=== PATIENT | male | born 1965 | race Caucasian/White ===

== ENCOUNTER 2017-06-25 18:28 | Emergency (ER) | payer OTHER ==
[~2017-06-25] VITALS: Ht 175.3 cm; Wt 96.6 kg
--- NOTE | 2017-06-25 18:41 | NUR ---
PATIENT PRESENTS TO ER C/O REDNESS/POSSIBLE ABSCESS TO RLQ x 3 DAYS. PATIENT IS A/OX 4, BREATHING EVEN AND UNLABORED ON ROOM AIR. NO SOB. NO DISTRESS. VITALS STABLE. SAFETY AND COMFORT MEASURES IN PLACE. AWAITING MD ORDERS.
[2017-06-25 18:51] VITALS: BP 138/84
--- NOTE | 2017-06-25 18:52 | NUR ---
Patient discharged to home in stable condition. Prescription given to patient. Written and verbal after care instructions given. Patient verbalizes understanding of instruction.
[2017-06-25] MEDS ORDERED: SULFAMETH/TRIMETH 800/160 MG 1 UDTAB TABLET PO ONE (19:00)
[2017-06-25] MEDS ORDERED: CEPHALEXIN MONOHYDRATE 500 MG CAPSULE PO ONE (19:00)
== END 2017-06-25 18:52 | disposition home or self-care (01) ==
LOC: ER 18:29
DX: L03.311 Cellulitis of abdominal wall (principal); F32.9 Major depressive disorder, single episode, unspecified; F17.200 Nicotine dependence, unspecified, uncomplicated
CPT/HCPCS: 99283; A4606; Z7610

== ENCOUNTER 2017-09-12 14:50 | Emergency (ER) | payer OTHER ==
[~2017-09-12] VITALS: Ht 175.3 cm; Wt 98.9 kg
[2017-09-12 14:50] VITALS: BP 145/70
[2017-09-12] MEDS ORDERED: LIDOCAINE 1% INJ 50 ML MDV IJ ONE ×2 (15:30→15:44)
--- NOTE | 2017-09-12 16:02 | NUR ---
LAC REPAIR DONE. 4 SUTERES NOTED. WOUND CARE PROVIDED.
== END 2017-09-12 16:10 | disposition home or self-care (01) ==
LOC: ER 14:52
DX: S61.211A Laceration without foreign body of left index finger without damage to nail, initial encounter (principal); F32.9 Major depressive disorder, single episode, unspecified; F17.200 Nicotine dependence, unspecified, uncomplicated; W45.8XXA Other foreign body or object entering through skin, initial encounter; Y93.89 Activity, other specified; Y92.89 Other specified places as the place of occurrence of the external cause; Y99.8 Other external cause status
CPT/HCPCS: 12001; 99283; A4606; A6402; J3490; Z7610

== ENCOUNTER 2017-09-24 00:33 | Emergency (ER) | payer OTHER ==
[~2017-09-24] VITALS: Ht 175.3 cm; Wt 97.5 kg
[2017-09-24 00:46] VITALS: BP 127/68
== END 2017-09-24 01:03 | disposition home or self-care (01) ==
LOC: ER 00:38
DX: S61.211D Laceration without foreign body of left index finger without damage to nail, subsequent encounter (principal); F32.9 Major depressive disorder, single episode, unspecified; F17.200 Nicotine dependence, unspecified, uncomplicated; W45.8XXD Other foreign body or object entering through skin, subsequent encounter
CPT/HCPCS: 99281; A4606; Z7610; Z7502

== ENCOUNTER 2018-06-14 14:56 | Emergency (ER) | payer OTHER ==
[~2018-06-14] VITALS: Ht 175.3 cm; Wt 83.5 kg
--- NOTE | 2018-06-14 15:17 | NUR ---
PT AMBULATORY TO ER BED 11 C/O L KNEE PAIN, STATES TWISTED IT WHILE WALKING TODAY. DENIES ANY OTHER COMPLAIN AT THIS TIME. VSS. AWAITING MD SIMPSON.
--- NOTE | 2018-06-14 15:48 | NUR ---
MALISSA CONWAY AT BEDSIDE FOR EVAL.
[2018-06-14] MEDS ORDERED: KETOROLAC TROMETHAMINE INJ 60 MG/2 ML VIAL IM ONE ×2 (16:28→16:30)
--- NOTE | 2018-06-14 17:11 | NUR ---
KNEE IMMOBILIZER APPLIED. Patient discharged to home in stable condition. Written and verbal after care instructions given. Patient verbalizes understanding of instruction.
[2018-06-14 17:12] VITALS: BP 128/77
== END 2018-06-14 17:13 | disposition home or self-care (01) ==
LOC: ER 15:01
DX: M17.12 Unilateral primary osteoarthritis, left knee (principal); M25.562 Pain in left knee; F32.9 Major depressive disorder, single episode, unspecified; F17.200 Nicotine dependence, unspecified, uncomplicated
CPT/HCPCS: 29505; 73564; 96372; 99284; 99406; A4606; J1885; Z7610

== ENCOUNTER 2018-07-09 03:19 | Emergency (ER) | payer OTHER ==
[~2018-07-09] VITALS: Ht 175.3 cm; Wt 83.9 kg
[2018-07-09 03:30] VITALS: BP 134/91
[2018-07-09] MEDS ORDERED: HYDROCODONE/APAP 5/325MG 1 EACH TABLET ONE (04:19)
[2018-07-09] MEDS ORDERED: HYDROCODONE/APAP 5/325MG 1 EACH TABLET PO ONE (04:30)
== END 2018-07-09 04:36 | disposition home or self-care (01) ==
LOC: ER 03:26
DX: S92.411A Displaced fracture of proximal phalanx of right great toe, initial encounter for closed fracture (principal); F17.200 Nicotine dependence, unspecified, uncomplicated; W20.8XXA Other cause of strike by thrown, projected or falling object, initial encounter; Y93.89 Activity, other specified; Y92.89 Other specified places as the place of occurrence of the external cause; Y99.0 Civilian activity done for income or pay
CPT/HCPCS: 73660; 99284; A4606; Z7610

== ENCOUNTER 2019-05-17 22:06 | Emergency (ER) | payer OTHER ==
[~2019-05-17] VITALS: Ht 175.3 cm; Wt 91.2 kg
--- NOTE | 2019-05-17 23:51 | NUR ---
URINE COLLECTED AND SENT TO LAB
--- NOTE | 2019-05-18 00:20 | NUR ---
Pt BIBSELF FROM HOME C/O SUDDEN LEFT KNEE PAIN EARLIER TODAY AT WORK. HAD TO LEAVE EARLY FROM WORK DUE TO SUDDEN PAIN AND WAS UNABLE TO AMBULATE WELL. 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 HAS A HX OF LT KNEE SURGERY YEARS AGO AND HAS CONTINUED INTERMITTENT PAIN THROUGHOUT THE YEARS, BUT TODAY WAS THE WORSE IT HAS BEEN IN YEARS, PER Pt STATEMENT. Pt ALREADY SEEN BY MD AT BEDSIDE. Pt IS A/OX4, VERBAL, ABLE TO MAKE NEEDS KNOWN. NO S/S OF ACUTE DISTRESS OR SOB NOTED. WILL CONTINUE TO MONITOR Pt.
[2019-05-18] MEDS ORDERED: KETOROLAC TROMETHAMINE INJ 60 MG/2 ML VIAL IM ONE ×2 (00:30→00:50)
[2019-05-18] MEDS ORDERED: HYDROCODONE/APAP 5/325MG 1 EACH TABLET PO ONE (00:30)
[2019-05-18] MEDS ORDERED: HYDROCODONE/APAP 5/325MG 1 EACH TABLET ONE (00:50)
--- NOTE | 2019-05-18 01:02 | NUR ---
ADMINISTERED TORADOL 60MG IM ON RT DELTOID
--- NOTE | 2019-05-18 01:02 | NUR ---
Pt REFUSED TO TAKE THE NORCO BECAUSE HE IS THE ONLY ONE WHO IS ABLE TO DRIVE HIS CAR BACK HOME. REQUESTED IF HE COULD HAVE A NORCO PRESCRIPTION INSTEAD SO HE CAN TAKE IT AT HOME SAFELY. INFORMED .
--- NOTE | 2019-05-18 01:17 | NUR ---
KNEE IMMOBILIZER & CRUTCHES GIVEN TO Pt
[2019-05-18 02:07] VITALS: BP 133/87
== END 2019-05-18 02:09 | disposition home or self-care (01) ==
LOC: ER 22:06
DX: M25.562 Pain in left knee (principal); F17.200 Nicotine dependence, unspecified, uncomplicated; Z98.890 Other specified postprocedural states
CPT/HCPCS: 29505; 73564; 96372; 99283; J1885

== ENCOUNTER 2019-06-20 21:55 | Emergency (ER) | payer OTHER ==
[~2019-06-20] VITALS: Ht 175.3 cm; Wt 91.2 kg
--- NOTE | 2019-06-20 22:30 | NUR ---
bib family for evaluation of backache radiating to his abd since 1499. -n/v, - hematuria or dysuria. will cont to monitor,
[2019-06-20] MEDS ORDERED: KETOROLAC TROMETHAMINE INJ 60 MG/2 ML VIAL IM ONE (22:46)
[2019-06-20] MEDS ORDERED: DEXAMETHASONE SOD PHOSPHATE 10 MG/ML VIAL ONE (22:46)
[2019-06-20] MEDS ORDERED: CYCLOBENZAPRINE 10 MG TABLET ONE (22:47)
[2019-06-20] MEDS: DEXAMETHASONE SOD PHOSPHATE 4 MG/ML VIAL IM ONE (22:58)
[2019-06-20] MEDS: CYCLOBENZAPRINE 10 MG TABLET PO ONE (22:58)
[2019-06-20] MEDS: KETOROLAC TROMETHAMINE INJ 60 MG/2 ML VIAL IM ONE (22:58)
[2019-06-20 23:30] LABS: APPEARANCE,URINE Clear (CLEAR); BILIRUBIN,URINE Negative (NEGATIVE); BLOOD, URINE Negative Ery/uL (NEGATIVE); COLOR,URINE Yellow (YELLOW); KETONES,URINE Negative (NEGATIVE); LEUKOCYTE ESTERASE ,URINE Negative (NEGATIVE); NITRITE, URINE Negative (NEGATIVE); PH,URINE 5.5 (5.0-8.0); PROTEIN,URINE 30 mg/dl (NEGATIVE); UGLUCOSE Negative (NEGATIVE); UROBILINOGEN,URINE 0.2 EU/dL (0.2)
--- NOTE | 2019-06-20 23:55 | NUR ---
Patient discharged to home in stable condition. Rx and Written and verbal after care instructions given. Patient verbalizes understanding of instruction.
[2019-06-20 23:56] LABS: BACTERIA,URINE Rare /HPF (None Seen); RBC,URINE 0-2 /HPF (0-2); SQUAMOUS EPITHELIAL CELL,UR Rare /HPF (None Seen); WBC,URINE 0-2 /HPF (0-3)
[2019-06-21 00:07] VITALS: BP 138/87
== END 2019-06-21 | disposition home or self-care (01) ==
LOC: ER 21:59
DX: M54.5 Low back pain (principal); F17.200 Nicotine dependence, unspecified, uncomplicated; Z98.890 Other specified postprocedural states
CPT/HCPCS: 81001; 96372 ×2; 99283; J1100; J1885; 81000-TC

== ENCOUNTER 2019-09-12 16:05 | Emergency (ER) | payer OTHER ==
[~2019-09-12] VITALS: Ht 177.8 cm; Wt 83.9 kg
--- NOTE | 2019-09-12 16:15 | NUR ---
c/o left knee pain started 2pm today, denies injury or trauma. 07/28 ps, on room air, breathing evenly and unlabored. will continue to monitor accordingly.
[2019-09-12] MEDS ORDERED: NAPROXEN 250 MG TABLET ONE (16:22)
[2019-09-12] MEDS: NAPROXEN 500 MG TABLET PO ONE (16:24)
[2019-09-12 16:36] VITALS: BP 155/88
--- NOTE | 2019-09-12 16:37 | NUR ---
Patient discharged to home in stable condition. Written and verbal after care instructions given. Patient verbalizes understanding of instruction.
== END 2019-09-12 16:37 | disposition home or self-care (01) ==
LOC: ER 16:07
DX: M25.562 Pain in left knee (principal); M54.9 Dorsalgia, unspecified; G89.29 Other chronic pain; F17.200 Nicotine dependence, unspecified, uncomplicated; Z98.890 Other specified postprocedural states

== ENCOUNTER 2019-12-11 21:27 | Emergency (ER) | payer OTHER ==
[~2019-12-11] VITALS: Ht 175.3 cm; Wt 86.2 kg
[2019-12-11 21:27] VITALS: BP 147/82
--- NOTE | 2019-12-11 22:30 | NUR ---
Patient discharged to home in stable condition. Written and verbal after care instructions given. Patient verbalizes understanding of instruction.
== END 2019-12-11 22:25 | disposition home or self-care (01) ==
LOC: ER 21:27
DX: B07.9 Viral wart, unspecified (principal); F17.200 Nicotine dependence, unspecified, uncomplicated; Z98.890 Other specified postprocedural states

== ENCOUNTER 2020-01-21 09:14 | Emergency (ER) | payer OTHER ==
[~2020-01-21] VITALS: Ht 175.3 cm; Wt 90.7 kg
[2020-01-21 09:25] VITALS: BP 13/79
== END 2020-01-21 09:51 | disposition home or self-care (01) ==
LOC: ER 09:14
DX: R07.81 Pleurodynia (principal); F17.200 Nicotine dependence, unspecified, uncomplicated; Z98.890 Other specified postprocedural states

== ENCOUNTER 2020-05-09 01:01 | Emergency (ER) | payer OTHER ==
[~2020-05-09] VITALS: Ht 175.3 cm; Wt 90.7 kg
--- NOTE | 2020-05-09 01:11 | NUR ---
PT AAOX4. AMBULATORY, BIBSELF C/O L KNEE PAIN S/P "POPPING OUT THEN IN" -FALL -KO. PLACED IN BED 9 ON MONITOR AND PULSE OX. MD AT BEDSIDE FOR EVLA. AWAITING ORDERS.
[2020-05-09] MEDS ORDERED: IBUPROFEN 400 MG TABLET ONE (01:16)
--- NOTE | 2020-05-09 01:18 | NUR ---
RADIOLOGY AT BEDSIDE.
[2020-05-09] MEDS ORDERED: IBUPROFEN 400 MG TABLET PO ONE (01:30)
--- NOTE | 2020-05-09 02:47 | NUR ---
Patient discharged to home in stable condition. Written and verbal after care instructions given. Patient verbalizes understanding of instruction. Pt ambulated with steady gait. vss.
[2020-05-09 05:38] VITALS: BP 129/79
== END 2020-05-09 02:47 | disposition home or self-care (01) ==
LOC: ER 01:04
DX: M25.562 Pain in left knee (principal); Z98.890 Other specified postprocedural states
CPT/HCPCS: 73564-TC

== ENCOUNTER 2020-05-17 16:18 | Emergency (ER) | payer OTHER ==
[~2020-05-17] VITALS: Ht 175.3 cm; Wt 82.1 kg
[2020-05-17 16:23] VITALS: BP 146/86
--- NOTE | 2020-05-17 16:37 | NUR ---
Patient discharged to home in stable condition. Written and verbal after care instructions given. Patient verbalizes understanding of instruction.
== END 2020-05-17 16:37 | disposition home or self-care (01) ==
LOC: ER 16:21
DX: Z04.1 Encounter for examination and observation following transport accident (principal); F17.200 Nicotine dependence, unspecified, uncomplicated; Z98.890 Other specified postprocedural states; V49.49XA Driver injured in collision with other motor vehicles in traffic accident, initial encounter; Y93.89 Activity, other specified; Y92.413 State road as the place of occurrence of the external cause; Y99.8 Other external cause status

== ENCOUNTER 2021-04-18 23:02 | Emergency (ER) | payer OTHER ==
[~2021-04-18] VITALS: Ht 175.3 cm; Wt 83.9 kg
[2021-04-18 23:02] VITALS: BP 140/80
--- NOTE | 2021-04-18 23:34 | NUR ---
DR PAN AT BED SIDE
[2021-04-18] MEDS ORDERED: CYCL10TA9 PO (23:39)
[2021-04-18] MEDS ORDERED: HYDR-4209 PO (23:39)
== END 2021-04-18 23:50 | disposition home or self-care (01) ==
LOC: ER 23:07
DX: M54.5 Low back pain (principal); F17.210 Nicotine dependence, cigarettes, uncomplicated; Z98.890 Other specified postprocedural states

== ENCOUNTER 2021-05-29 22:46 | Emergency (ER) | payer OTHER ==
[~2021-05-29] VITALS: Ht 175.3 cm; Wt 81.6 kg
[~2021-05-29 22:46] MED LIST: CYCL10TA9 PO; HYDR-4209 PO
[2021-05-29 23:14] VITALS: BP 147/66
== END 2021-05-30 00:14 | disposition home or self-care (01) ==
LOC: ER 22:46
DX: M25.562 Pain in left knee (principal); F17.200 Nicotine dependence, unspecified, uncomplicated; Z98.890 Other specified postprocedural states
CPT/HCPCS: 73564-TC

== ENCOUNTER 2021-10-24 11:25 | Emergency (ER) | payer OTHER ==
[~2021-10-24] VITALS: Ht 175.3 cm; Wt 81.6 kg
--- NOTE | 2021-10-24 12:25 | NUR ---
Left inguinal pain, the pain radiates to the back x7 days No fever The patient is fully vaccinated-against COVID-19; moderna vaccine
--- NOTE | 2021-10-24 12:31 | NUR ---
IV ESTABLISHED L AC 20G, LABS COLLECTED AND SENT AND CONVERTED TO [facility]
[2021-10-24] MEDS ORDERED: KETOROLAC TROMETHAMINE INJ 30 MG/ML VIAL IV ONE (13:00)
[2021-10-24] MEDS ORDERED: IV NS 0.9% 1,000 ML BAG IV ONE (13:00)
--- NOTE | 2021-10-24 13:01 | NUR ---
URINE COLLECTED AND SENT
[2021-10-24] MEDS ORDERED: KETOROLAC TROMETHAMINE 15 MG/ML VIAL ONE (13:09)
[2021-10-24 13:47] LABS: BASOPHILS % (AUTO) 0.5 % (0.0-2.0); EOSINOPHILS % (AUTO) 1.7 % (0.0-6.0); HEMATOCRIT 49 % (39-51); HEMOGLOBIN 16.4 g/dL (13.5-17.5); LYMPHOCYTES # (AUTO) 2.9 K/uL (0.8-4.8); LYMPHOCYTES % (AUTO) 32.7 % (20.0-44.0); MEAN CORPUSCULAR HGB CONC 34 g/dl (31.0-36.0); MEAN CORPUSCULAR VOLUME 97 fL (80-96); MONOCYTES # (AUTO) 0.5 K/uL (0.1-1.30); MONOCYTES % (AUTO) 5.9 % (2.0-12.0); NEUTROPHILS # (AUTO) 5.2 K/uL (1.8-8.9); NEUTROPHILS % (AUTO) 59.2 % (43.0-81.0); PLATELET COUNT (AUTO) 252 K/uL (150-450); RED BLOOD CELL COUNT(AUTO) 5.04 MIL/uL (4.5-6.0); WHITE BLOOD COUNT (AUTO) 8.8 K/uL (4.3-11.0)
--- NOTE | 2021-10-24 13:52 | NUR ---
PT TAKEN TO CT
[2021-10-24 14:03] LABS: BILIRUBIN,URINE NEGATIVE (NEGATIVE); COLOR,URINE OTHER (YELLOW); LEUKOCYTE ESTERASE ,URINE NEGATIVE (NEGATIVE); NITRITE, URINE NEGATIVE (NEGATIVE); PROTEIN,URINE NEGATIVE (NEGATIVE); UGLUCOSE NEGATIVE (NEGATIVE); UROBILINOGEN,URINE 0.2 EU/dL (0.2)
[2021-10-24 14:27] LABS: BILIRUBIN,DIRECT 0.1 mg/dL (0.0-0.2); BILIRUBIN,TOTAL 0.5 mg/dL (0.2-1.0); CALCIUM, SERUM 8.7 mg/dL (8.5-10.1); CREATININE 1.2 mg/dL (0.6-1.3); POTASSIUM 4.4 mmol/L (3.5-5.1); TOTAL PROTEIN, SERUM 7.6 g/dL (6.4-8.2)
[2021-10-24] MEDS ORDERED: IBUP-1955 PO (17:42)
--- NOTE | 2021-10-24 17:48 | NUR ---
IV removed. Catheter intact and site benign. Pressure and 4x4 applied to site. No bleeding noted.Patient discharged to home in stable condition. Written and verbal after care instructions given. Patient verbalizes understanding of instruction.
[2021-10-24 17:49] VITALS: BP 123/82
== END 2021-10-24 17:50 | disposition home or self-care (01) ==
LOC: ER 12:28
DX: R10.9 Unspecified abdominal pain (principal); F17.290 Nicotine dependence, other tobacco product, uncomplicated; Z79.1 Long term (current) use of non-steroidal anti-inflammatories (NSAID); Z79.899 Other long term (current) drug therapy
CPT/HCPCS: 36415; 74176; 80048; 80076; 81003; 83690; 85025; 96361; 96374; 99285; J1885; J7030

== ENCOUNTER 2021-11-15 06:17 | Emergency (ER) | payer OTHER ==
[~2021-11-15] VITALS: Ht 175.3 cm; Wt 81.6 kg
[~2021-11-15 06:17] MED LIST changes: +IBUP-1955 PO
--- NOTE | 2021-11-15 06:35 | NUR ---
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 PATIENT IS A/O X 4, RR EVEN AND UNLABORED, NO SOB NOTED. PATIENT CONNECTED TO MONITOR.
--- NOTE | 2021-11-15 06:36 | NUR ---
ER AT BEDSIDE
--- NOTE | 2021-11-15 06:57 | NUR ---
XRAY AT BEDSIDE
[2021-11-15] MEDS ORDERED: NAPR-1192 PO (07:46)
[2021-11-15] MEDS ORDERED: CYCL5TAB PO (07:46)
[2021-11-15] MEDS ORDERED: NAPROXEN 250 MG TABLET PO ONE (08:00)
[2021-11-15] MEDS ORDERED: NAPROXEN 250 MG TABLET ONE (08:11)
--- NOTE | 2021-11-15 08:20 | NUR ---
Patient discharged to home in stable condition. Written and verbal after care instructions given. Patient verbalizes understanding of instruction.
[2021-11-15 08:21] VITALS: BP 135/82
== END 2021-11-15 08:22 | disposition home or self-care (01) ==
LOC: ER 06:20
DX: S29.011A Strain of muscle and tendon of front wall of thorax, initial encounter (principal); R07.89 Other chest pain; Z79.1 Long term (current) use of non-steroidal anti-inflammatories (NSAID); Z79.891 Long term (current) use of opiate analgesic; X58.XXXA Exposure to other specified factors, initial encounter; Y93.89 Activity, other specified; Y92.89 Other specified places as the place of occurrence of the external cause; Y99.8 Other external cause status
CPT/HCPCS: 71100-TC

== ENCOUNTER 2022-02-11 12:18 | Emergency (ER) | payer OTHER ==
[~2022-02-11] VITALS: Ht 175.3 cm; Wt 81.6 kg
[~2022-02-11 12:18] MED LIST changes: +CYCL5TAB PO; +NAPR-1192 PO
--- NOTE | 2022-02-11 12:20 | NUR ---
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 PAIN SCALE IS 8/10 DESCRIBED STABBING ON LEFT CHEST. PATIENT PLACED COMFORTABLY IN BED. VITALS CHECKED.
--- NOTE | 2022-02-11 12:35 | NUR ---
EKG DONE AT BEDSIDE.
--- NOTE | 2022-02-11 12:52 | NUR ---
CXR DONE AT BEDSIDE
[2022-02-11 12:55] LABS: BASOPHILS # (AUTO) 0.1 K/uL (0.0-0.2); BASOPHILS % (AUTO) 0.6 % (0.0-2.0); EOSINOPHILS % (AUTO) 2.6 % (0.0-6.0); HEMATOCRIT 46 % (39-51); HEMOGLOBIN 15.4 g/dL (13.5-17.5); LYMPHOCYTES # (AUTO) 2.5 K/uL (0.8-4.8); LYMPHOCYTES % (AUTO) 23.6 % (20.0-44.0); MEAN CORPUSCULAR HGB CONC 34 g/dl (31.0-36.0); MEAN CORPUSCULAR VOLUME 94 fL (80-96); MONOCYTES # (AUTO) 0.7 K/uL (0.1-1.30); MONOCYTES % (AUTO) 6.5 % (2.0-12.0); NEUTROPHILS # (AUTO) 7.1 K/uL (1.8-8.9); NEUTROPHILS % (AUTO) 66.7 % (43.0-81.0); PLATELET COUNT (AUTO) 267 K/uL (150-450); RED BLOOD CELL COUNT(AUTO) 4.88 MIL/uL (4.5-6.0); WHITE BLOOD COUNT (AUTO) 10.6 K/uL (4.3-11.0)
[2022-02-11 13:04] LABS: CALCIUM, SERUM 9.2 mg/dL (8.5-10.1); CARBON DIOXIDE 27 mmol/L (21-32); CHLORIDE 103 mmol/L (98-107); CREATININE 1.5 mg/dL (0.6-1.3); GLUCOSE 109 mg/dL (74-106); POTASSIUM 3.9 mmol/L (3.5-5.1); SODIUM SERUM 137 mmol/L (136-145); UREA NITROGEN, BLOOD 15 mg/dL (7-18)
[2022-02-11] MEDS ORDERED: IBUP-1955 PO (15:23)
--- NOTE | 2022-02-11 15:25 | NUR ---
PATIENT REFUSED PAIN INJECTION
[2022-02-11] MEDS ORDERED: KETOROLAC TROMETHAMINE INJ 30 MG/ML VIAL IV ONE (15:30)
--- NOTE | 2022-02-11 15:30 | NUR ---
Patient discharged to home in stable condition. Written and verbal after care instructions given. Patient verbalizes understanding of instruction.
[2022-02-11 16:12] VITALS: BP 124/71
== END 2022-02-11 16:13 | disposition home or self-care (01) ==
LOC: ER 12:20
DX: R07.89 Other chest pain (principal); Z79.899 Other long term (current) drug therapy
CPT/HCPCS: 36415; 71045-TC; 80048-TC; 84484-TC; 85025-TC

== ENCOUNTER 2022-04-09 17:42 | Emergency (ER) | payer OTHER ==
[~2022-04-09] VITALS: Ht 175.3 cm; Wt 81.6 kg
[2022-04-09 18:34] VITALS: BP 147/85
--- NOTE | 2022-04-09 18:40 | NUR ---
BIBS FOR LEFT SHOULDER PAIN 07/28. THE PATIENT HAS HX SHOULDER INJURY AND WILL START THERAPY ON April. WILL CONTINUE TO MONITOR THE PATIENT.
[2022-04-09] MEDS ORDERED: KETOROLAC TROMETHAMINE INJ 60 MG/2 ML VIAL IM ONE (19:00)
[2022-04-09] MEDS ORDERED: CYCLOBENZAPRINE 10 MG TABLET PO ONE (19:00)
[2022-04-09] MEDS ORDERED: CYCLOBENZAPRINE 10 MG TABLET ONE (19:16)
[2022-04-09] MEDS ORDERED: KETOROLAC TROMETHAMINE INJ 30 MG/ML VIAL ONE (19:16)
[2022-04-09] MEDS ORDERED: IBUP-1955 PO (19:28)
[2022-04-09] MEDS ORDERED: CYCL5TAB PO (19:28)
== END 2022-04-09 19:37 | disposition home or self-care (01) ==
LOC: ER 17:55
DX: M25.512 Pain in left shoulder (principal); F17.200 Nicotine dependence, unspecified, uncomplicated; Z79.899 Other long term (current) drug therapy
CPT/HCPCS: 96372; 99283; J1885

== ENCOUNTER 2022-10-08 04:18 | Emergency (ER) | payer OTHER ==
[~2022-10-08] VITALS: Ht 175.3 cm; Wt 83.9 kg
--- NOTE | 2022-10-08 04:45 | NUR ---
BIBSELF C/O L SIDED CP X1 DAY. STATED HE HAS CP DUE STRESS FROM WORK. PATIENT PAIN SCALE IS 7/10. AMBULATES, AAOX4. ABLE TO MAKE NEEDS KNOWN. PLACED COMFORTABLY IN BED. VITALS CHECKED.
--- NOTE | 2022-10-08 04:46 | NUR ---
SEEN BY DR GOMEZ AT BEDSIDE
--- NOTE | 2022-10-08 04:52 | NUR ---
XRAY DONE AT BEDSIDE.
[2022-10-08 05:26] LABS: BASOPHILS % (AUTO) 0.6 % (0.0-2.0); EOSINOPHILS % (AUTO) 2.9 % (0.0-6.0); HEMATOCRIT 47 % (39-51); HEMOGLOBIN 15.6 g/dL (13.5-17.5); LYMPHOCYTES % (AUTO) 29.2 % (20.0-44.0); MEAN CORPUSCULAR HGB CONC 33 g/dl (31.0-36.0); MEAN CORPUSCULAR VOLUME 96 fL (80-96); MONOCYTES # (AUTO) 0.6 K/uL (0.1-1.30); MONOCYTES % (AUTO) 8.7 % (2.0-12.0); NEUTROPHILS # (AUTO) 4.1 K/uL (1.8-8.9); NEUTROPHILS % (AUTO) 58.6 % (43.0-81.0); PLATELET COUNT (AUTO) 258 K/uL (150-450); RED BLOOD CELL COUNT(AUTO) 4.95 MIL/uL (4.5-6.0)
[2022-10-08 05:51] LABS: ALANINE AMINOTRANSFERASE 33 U/L (12-78); ALBUMIN 3.6 g/dL (3.4-5.0); ALKALINE PHOSPHATASE 101 U/L (46-116); ASPARTATE AMINOTRANSFERASE 19 U/L (15-37); BILIRUBIN,DIRECT 0.1 mg/dL (0.0-0.2); BILIRUBIN,TOTAL 0.4 mg/dL (0.2-1.0); CARBON DIOXIDE 26 mmol/L (21-32); CHLORIDE 105 mmol/L (98-107); CREATININE 1.1 mg/dL (0.6-1.3); GLUCOSE 102 mg/dL (74-106); POTASSIUM 4.2 mmol/L (3.5-5.1); SODIUM SERUM 140 mmol/L (136-145); UREA NITROGEN, BLOOD 19 mg/dL (7-18)
[2022-10-08] MEDS ORDERED: ESCI5TAB PO (06:17)
[2022-10-08] MEDS ORDERED: CLIN300C12 PO (06:17)
--- NOTE | 2022-10-08 06:18 | NUR ---
SEEN BY DR BURTON AT BEDSIDE.
[2022-10-08 06:26] VITALS: BP 152/114
--- NOTE | 2022-10-08 06:26 | NUR ---
Patient discharged to home in stable condition. Written and verbal after care instructions given. Patient verbalizes understanding of instruction.
== END 2022-10-08 06:26 | disposition home or self-care (01) ==
LOC: ER 04:19
DX: F41.0 Panic disorder [episodic paroxysmal anxiety] (principal); F43.0 Acute stress reaction; L02.212 Cutaneous abscess of back [any part, except buttock and flank]; Z96.652 Presence of left artificial knee joint; F17.200 Nicotine dependence, unspecified, uncomplicated
CPT/HCPCS: 36415; 71045-TC; 80048-TC; 80076-TC; 84484-TC; 85025-TC; 85730-TC

== ENCOUNTER 2022-12-16 12:26 | Emergency (ER) | payer OTHER ==
[~2022-12-16] VITALS: Ht 175.3 cm; Wt 83.9 kg
[~2022-12-16 12:26] MED LIST changes: +CLIN300C12 PO; +ESCI5TAB PO
--- NOTE | 2022-12-16 13:20 | NUR ---
RECEIVED PT 57 YRS MALE FROM HOME C/O LT KNEE IN AND OUT DISCLOATION ABLE TO AMBLATE
--- NOTE | 2022-12-16 14:40 | NUR ---
X RAY DONE ON LT KNEE
[2022-12-16 16:20] VITALS: BP 142/89
--- NOTE | 2022-12-16 16:26 | NUR ---
Patient discharged to home in stable condition. Written and verbal after care instructions given. Patient verbalizes understanding of instruction.
== END 2022-12-16 16:42 | disposition home or self-care (01) ==
LOC: ER 12:27
DX: M25.562 Pain in left knee (principal); F17.200 Nicotine dependence, unspecified, uncomplicated; Z98.890 Other specified postprocedural states; Z79.899 Other long term (current) drug therapy
CPT/HCPCS: 73564-TC

== ENCOUNTER 2023-03-18 04:57 | Emergency (ER) | payer OTHER ==
[~2023-03-18] VITALS: Ht 175.3 cm; Wt 83.9 kg
--- NOTE | 2023-03-18 05:09 | NUR ---
BIBS C/O ON AN DOFF CHEST PAIN SINCE 9PM TODAY.
--- NOTE | 2023-03-18 05:10 | NUR ---
EMT AT PT'S BEDSIDE FOR EKG
--- NOTE | 2023-03-18 05:11 | NUR ---
DR MARGARET ZAMUDIO AT PT'S BEDSIDE FOR EVAL
[2023-03-18] MEDS ORDERED: ASPIRIN 325 MG TABLET ONE (05:21)
--- NOTE | 2023-03-18 05:22 | NUR ---
SUPERVISOR FURNACE PROCESS AT PT'S BEDSIDE
[2023-03-18] MEDS ORDERED: ASPIRIN 325 MG TABLET PO ONE (05:30)
--- NOTE | 2023-03-18 05:32 | NUR ---
RAC #20G S/L BLOOD COLLECTED AND SENT TO LAB
[2023-03-18 05:45] LABS: BASOPHILS % (AUTO) 0.6 % (0.0-2.0); EOSINOPHILS % (AUTO) 3.9 % (0.0-6.0); HEMATOCRIT 48 % (39-51); LYMPHOCYTES # (AUTO) 1.9 K/uL (0.8-4.8); LYMPHOCYTES % (AUTO) 25.7 % (20.0-44.0); MEAN CORPUSCULAR HGB CONC 33 g/dl (31.0-36.0); MEAN CORPUSCULAR VOLUME 94 fL (80-96); MONOCYTES # (AUTO) 0.6 K/uL (0.1-1.30); MONOCYTES % (AUTO) 7.9 % (2.0-12.0); NEUTROPHILS # (AUTO) 4.7 K/uL (1.8-8.9); NEUTROPHILS % (AUTO) 61.9 % (43.0-81.0); PLATELET COUNT (AUTO) 236 K/uL (150-450); RED BLOOD CELL COUNT(AUTO) 5.13 MIL/uL (4.5-6.0); WHITE BLOOD COUNT (AUTO) 7.5 K/uL (4.3-11.0)
[2023-03-18 05:56] LABS: CALCIUM, SERUM 8.9 mg/dL (8.5-10.1); CARBON DIOXIDE 28 mmol/L (21-32); CHLORIDE 106 mmol/L (98-107); CREATININE 1.3 mg/dL (0.6-1.3); GLUCOSE 154 mg/dL (74-106); POTASSIUM 3.9 mmol/L (3.5-5.1); SODIUM SERUM 142 mmol/L (136-145); UREA NITROGEN, BLOOD 16 mg/dL (7-18)
--- NOTE | 2023-03-18 07:10 | NUR ---
RECEIVED PT FROM AARON HOLLIS AWAKE AND ALERT DINESES CHEST PAIN OR SOB
--- NOTE | 2023-03-18 08:00 | NUR ---
Patient discharged to home in stable condition. Written and verbal after care instructions given. Patient verbalizes understanding of instruction.IV removed. Catheter intact and site benign. Pressure and 4x4 applied to site. No bleeding noted.
[2023-03-18 08:01] VITALS: BP 138/88
== END 2023-03-18 08:02 | disposition home or self-care (01) ==
LOC: ER 04:59
DX: R07.89 Other chest pain (principal); F17.200 Nicotine dependence, unspecified, uncomplicated; Z79.899 Other long term (current) drug therapy
CPT/HCPCS: 36415; 71045-TC; 80048-TC; 84484-TC; 85025-TC